=== PATIENT | female | born 1955 | race Caucasian/White ===

== ENCOUNTER → 2018-06-27 08:54 | Outpatient (CLI) | payer OTHER, SELFPAY ==
--- NOTE | 2018-06-27 09:02 | VDLE_ITS ---
Reason For Study: chronic venous insufficiency RIGHT LEFT CFV is compressible, spontaneous, phasic, CFV is compressible, spontaneous, phasic, competent and demonstrates normal competent, and demonstrates normal augmentation. augmentation. FV is compressible, spontaneous, phasic, FV is compressible, spontaneous, phasic, competent and demonstrates normal competent and demonstrates normal augmentation. augmentation. POP V is compressible, spontaneous, phasic, POP V is compressible, spontaneous, phasic, competent and demonstrates normal competent and demonstrates normal augmentation. augmentation. T/P Trunk is compressible. T/P Trunk is compressible. PTV is compressible. PTV is compressible. RT PerV is compressible. LT PerV is compressible. S-F Junction is incompetent for greater S-F Junction is competent. than .5 seconds. GSV is incompetent throughout for greater GSV is incompetent throughout for greater than .5 seconds. GSV merasures .324 x .324 than .5 seconds. GSV measures .936 x .937 cm. cm. GSV is inturrupted by a large cluster of SSV is incompetent for greater than .5 varicose veins. seconds. SSV is incompetent for greater than .5 SSV measures .59 cm. seconds. SSV measures .649 x .673 cm. Eggs Inspector V 11 cm proximal to the medial malleolus is incompetent for greater than .5 seconds. Varicose veins in the calf are partially compressible. Procedure Exam performed in department. The exam was diagnostic. Interpretation Summary Deep veins of the lower extremities are bilaterally patent and compressible segmentally. There is no evidence of deep vein thrombosis on either side. Valvular competence appears intact within the proximal deep venous systems bilaterally. The greater saphenous veins appear bilaterally patent and compressible segmentally. The right sapheno-femoral junction is incompetent . The left sapheno- femoral junction is competent . Segmental valvular incompetence is noted within the greater saphenous veins bilaterally. Small saphenous veins are patent and incompetent bilaterally. An incompetent hand bunch maker vein is noted in the right calf, located 11 centimeters proximal to the right medial malleolus. Acute/chronic superficial thrombophlebitis is noted involving superficial varicosities in the right calf. The continuity of the right greater saphenous vein appears to be interrupted by a large cluster of varicose veins in the right thigh. Ordering Physician: Isaac Eduardo Performed By: Zak Garg RVT
== END ==
PROVIDERS: Family Provider Family Medicine; PCP Family Medicine; Visit Provider Surgery
DX: M79.606 Pain in leg, unspecified (principal); I87.2 Venous insufficiency (chronic) (peripheral); I83.10 Varicose veins of unspecified lower extremity with inflammation
CPT/HCPCS: 93970

== ENCOUNTER → 2019-05-23 | Outpatient (CLI) | payer OTHER, SELFPAY ==
--- NOTE | 2019-05-23 09:50 | VDLE_ITS ---
Reason For Study: Chronic venous insufficiency RIGHT LEFT CFV is compressible, spontaneous, phasic, CFV is compressible, spontaneous, phasic, competent and demonstrates normal competent, and demonstrates normal augmentation. augmentation. FV is compressible, spontaneous, phasic, FV is compressible, spontaneous, phasic, competent and demonstrates normal competent and demonstrates normal augmentation. augmentation. POP V is compressible, spontaneous, phasic, POP V is compressible, spontaneous, phasic, competent and demonstrates normal competent and demonstrates normal augmentation. augmentation. T/P Trunk is compressible. T/P Trunk is compressible. PTV is compressible. PTV is compressible. RT PerV is compressible. LT PerV is compressible. SFJ is INCOMPETENT and measures 0.88 x 1.10 SFJ is competent and measures 0.85 x 0.96 cm. cm. GSV proximal thigh measures 0.42 x 0.46 cm. GSV is occluded s/p EVLA. GSV above knee is INCOMPETENT for greater SSV is occluded s/p EVLA. than 0.5 seconds. GSV at knee measures 0.35 x 0.34 cm. ASV from junction is INCOMEPTENT for greater GSV below knee is competent. than 0.5 seconds and measures 0.28 x 0.32 cm. ASV prox calf is INCOMPETENT for greater than INCOMPETENT poly packer and heat sealer 15 cm above medial 0.5 seconds and measures 0.41x 0.40 cm. malleolus. INCOMPETENT poly packer and heat sealer, from ASV, 28 cm above Procedure medial malleolus. Exam performed in department. SSV at junction is INCOMPETENT for greater than 0.5 seconds and measures 0.22 x 0.23 cm. Interpretation Summary Deep veins of the lower extremities are bilaterally patent and compressible segmentally. There is no evidence of deep vein thrombosis on either side. Valvular competence appears intact within the proximal deep venous systems bilaterally. The right sapheno-femoral junction is incompetent . The left sapheno-femoral junction is competent . The right great saphenous vein and small saphenous vein are occluded, consistent with a prior endothermal ablation procedure. The left great saphenous vein appears incompetent above the knee. The left great saphenous vein appears competent below the knee. The left small saphenous vein is patent and incompetent. The right accessory saphenous vein at the right sapheno-femoral junction is incompetent. The left accessory saphenous vein in the proximal left calf is incompetent. An incompetent poly packer and heat sealer vein is noted in the right calf, located 15 centimeters proximal to the right medial malleolus. An incompetent poly packer and heat sealer vein is noted in the left calf, located 28 centimeters proximal to the left medial malleolus, and communicating with the incompetent left calf accessory saphenous vein. Ordering Physician: Isaac Eduardo Referring Physician: Donnie Duncan Performed By: Natalia Villarreal RVT
== END | disposition home or self-care (01) ==
LOC: CVS 09:47
PROVIDERS: Family Provider Family Medicine; PCP Family Medicine; Referring Provider Surgery; Visit Provider Surgery
DX: I87.2 Venous insufficiency (chronic) (peripheral) (principal); I83.10 Varicose veins of unspecified lower extremity with inflammation
CPT/HCPCS: 93970